=== PATIENT | male | born 1950 | race African-American/Black ===

== ENCOUNTER 2020-07-26 20:12 | Emergency (ER) | payer OTHER ==
[~2020-07-26] VITALS: Ht 185.4 cm; Wt 66.0 kg
[2020-07-26] MEDS ORDERED: METHYLPREDNISOLONE SOD SUCC 125 MG/2 ML VIAL IV STA (20:39)
[2020-07-26] MEDS ORDERED: IPRATROPIUM BROMIDE (0.02%) 0.5MG/2.5ML NEB HHN STA (20:39)
[2020-07-26] MEDS ORDERED: MAGNESIUM 2 G PREMIX 50 ML IV ONE (20:45)
[2020-07-26] MEDS ORDERED: ALBUTEROL (0.083%) 2.5MG/3ML NEB HHN SCH (21:00)
[2020-07-26 21:20] LABS: BASOPHILS % 0.6 % (0.0-2.0); EOSINOPHILS % 4.5 % (0.0-5.0); HEMATOCRIT. 45.9 % (42.0-52.0); LYMPHOCYTES % 53.5 % (20.0-50.0); MEAN CORPUSCULAR HEMOGLOBIN 30.6 pg (28.0-32.0); MEAN CORPUSCULAR VOLUME 93.9 fL (80.0-94.0); MONOCYTES % 14.4 % (2.0-8.0); PLATELET 196 x1000/uL (130-400); RED BLOOD CELL COUNT 4.89 mill/uL (4.7-6.1); RED CELL DISTRIBUTION WIDTH 15.3 % (11.6-14.6)
[2020-07-26 21:24] LABS: CHLORIDE 112 mEq/L (98-107)
[2020-07-27 01:08] VITALS: BP 120/74
[2020-07-27] MEDS ORDERED: AZITHROMYCIN 500 MG TABLET PO ONE (01:15)
[2020-07-27] MEDS ORDERED: CEFTRIAXONE 1 G PREMIX 50 ML IV ONE (01:15)
== END 2020-07-27 03:00 | disposition short-term general hospital (02) ==
LOC: ER 20:12
DX: J44.1 Chronic obstructive pulmonary disease with (acute) exacerbation (principal); J96.01 Acute respiratory failure with hypoxia; J18.9 Pneumonia, unspecified organism
CPT/HCPCS: 36415; 71045; 80053; 84484; 85025; 93005; 94640; 96365; 96367; 96375; 99285; J0696; J2930; J3475

== ENCOUNTER 2024-08-21 21:53 | Emergency (ER) | payer OTHER ==
[~2024-08-21] VITALS: Ht 177.8 cm; Wt 55.0 kg
[~2024-08-21 21:53] MED LIST: ACET160S PO; DOCU-422 PO; IPRA3AMP9 HHN; METH1000 IV; ONDA4VIA22 IJ
[2024-08-21 22:02] VITALS: O2SAT 96
[2024-08-21] MEDS: SODIUM CHLORIDE 0.9% (SEPSIS BOLUS) IV ONE (22:30)
[2024-08-22 00:24] LABS: HEMATOCRIT. 47.5 % (42.0-52.0); HEMOGLOBIN. 15.7 g/dL (14.0-18.0); MEAN CORPUSCULAR HEMOGLOBIN 31.2 pg (28.0-32.0); MEAN CORPUSCULAR VOLUME 94.7 fL (80.0-94.0); MEAN PLATELET VOLUME 7.7 fl (7.4-10.4); PLATELET 392 x1000/uL (130-400); RED BLOOD CELL COUNT 5.02 mill/uL (4.7-6.1); RED CELL DISTRIBUTION WIDTH 15.6 % (11.6-14.6); WHITE BLOOD COUNT 24.1 x1000/uL (4.5-11.0)
[2024-08-22 00:37] LABS: CHLORIDE 96 mEq/L (98-107); POTASSIUM 4.3 mEq/L (3.5-5.1); SODIUM 136 mEq/L (136-145)
[2024-08-22 00:38] LABS: CALCIUM 10.2 mg/dL (8.7-10.4); CARBON DIOXIDE 22 mEq/L (21-32)
[2024-08-22 00:42] LABS: DIFFERENTIAL COMMENT 1
[2024-08-22 00:43] LABS: GLUCOSE 178 mg/dL (70-105); TROPONIN I HIGH SENSITIVITY 15 ng/L (3.0-53); UREA NITROGEN BLOOD 25 mg/dL (9-23)
[2024-08-22 00:45] LABS: ALANINE AMINOTRANSFERASE 15 IU/L (10-49); ALBUMIN 4.5 g/dL (3.2-4.8); ASPARTATE AMINOTRANSFERASE 24 IU/L (<34); BILIRUBIN DIRECT 0.3 mg/dL (<=3.0); BILIRUBIN TOTAL 0.9 mg/dL (0.1-1.0)
[2024-08-22 00:46] LABS: PROTEIN TOTAL 8.7 g/dL (6.0-8.3)
[2024-08-22 00:54] LABS: CREATININE 1.6 mg/dL (0.6-1.3)
[2024-08-22] MEDS: VANCOMYCIN 1G PREMIX 200 ML IV ONE (01:27)
[2024-08-22] MEDS: MORPHINE SULFATE 4 MG/ML INJ (FOR IV/IM USE) IV STA (01:38)
[2024-08-22] MEDS: ONDANSETRON HCL 4MG/2ML INJ IV STA (01:38)
[2024-08-22] MEDS: PIPERACILLIN/TAZO 3.375G/50ML 50 ML IV ONE (01:38)
[2024-08-22 01:46] LABS: LACTIC ACID 5.2 mmol/L (0.4-2.0)
[2024-08-22] MEDS ORDERED: IOHEXOL-350 100 ML BOTTLE ONE (04:06)
[2024-08-22 05:49] VITALS: BP 149/80; PULSE 88; RESP 24; TEMP 36.83628; O2SAT 90
[2024-08-22 09:13] LABS: PLATELET ESTIMATE NORMAL
== END 2024-08-22 06:37 | disposition short-term general hospital (02) ==
LOC: ER 21:53
DX: E87.21 Acute metabolic acidosis (principal); A41.89 Other specified sepsis; I71.40 Abdominal aortic aneurysm, without rupture, unspecified; J44.9 Chronic obstructive pulmonary disease, unspecified
CPT/HCPCS: 99291; 74176; 71045; 96361; 80076; 80048; 83605 ×2; 85025; 87040; 84484; 36415; 84145; 93005; 74174; 96365; 96375; 96368; J7030; Q9967; J2405; J2543; J3370; J2270